=== PATIENT | male | born 1975 | race Caucasian/White ===

== ENCOUNTER 2022-04-30 23:55 | Emergency (ER) | payer OTHER ==
[2022-05-01 00:30] LABS: BASOPHIL 0.2 % (0-2); EOSINOPHIL 0.3 % (0-5); HCT 45.6 % (42.0-52.0); HGB 15.2 g/dl (13.2-18.0); LYMPHOCYTE 5.5 % (15-48); MCH 29.2 pg (25.0-31.0); MCHC 33.3 g/dL (32.0-36.0); MCV 87.5 fL (78.0-100.0); MONOCYTE 6.8 % (0-12); MPV 8.6 fL (6.0-9.5); NEUTROPHIL 86.9 % (41-80); NRBC 0; PLT 209 K/uL (150-400); RBC 5.21 M/uL (4.70-6.00); RDW 13.5 % (11.5-14.0); WBC 14.3 K/uL (4.0-10.5)
[2022-05-01 00:49] LABS: ALBUMIN 3.8 g/dL (3.4-5.0); BILIRUBIN - TOTAL 0.8 mg/dL (0.2-1.0); BUN/CREAT RATIO (CALC) 17.5 RATIO; CREATININE 1.03 mg/dL (0.67-1.17); GLOBULIN (CALCULATION) 3.5 g/dL; POTASSIUM 3.5 mmol/L (3.5-5.1); TOTAL PROTEIN 7.3 g/dL (6.4-8.2)
[2022-05-01 00:50] LABS: INR 0.91 (0.9-1.2); PTT 30.5 SECONDS (24.9-34.6)
[2022-05-01 01:06] LABS: CORONAVIRUS 2019 SARS-COV-2 NEGATIVE (NEGATIVE); INFLUENZA A NAA NEGATIVE (NEGATIVE)
== END 2022-05-01 06:07 | disposition home or self-care (01) ==
LOC: FER 23:55
PROVIDERS: Internal Medicine
DX: K59.00 Constipation, unspecified (principal); R74.01 Elevation of levels of liver transaminase levels; R11.2 Nausea with vomiting, unspecified; R14.0 Abdominal distension (gaseous); F17.290 Nicotine dependence, other tobacco product, uncomplicated; Z20.822 Contact with and (suspected) exposure to COVID-19
CPT/HCPCS: 36415; 80053; 83605; 83690; 85025; 85610; 85730; J2405; J7120; U0002